=== PATIENT | male | born 1980 | race African-American/Black ===

== ENCOUNTER → 2018-11-09 14:44 | Emergency (ER) | payer MEDICAID ==
[~2018-11-09 14:44] MED LIST: Acetaminophen TAB* 325 MG PO ONE; Al Hydrox/Mg Hydrox/Simet LIQ* 30 ML UDC PO ONE; Hydrochlorothiazide TAB* 25 MG PO ONE; Iohexol 350* (CONTRAST) 500 ML MDV IV ONE; Labetalol IV* 5 MG/ML 20 ML VIAL IV PUSH ONE; Lidocaine 2% VISCOUS* 15 ML UDC PO ONE; Lisinopril TAB* 10 MG PO ONE; Pantoprazole TAB * 40 MG TAB PO ONE; hydrALAZINE IV* 20 MG/ML VIAL IV SLOW PU ONE
--- NOTE | 2018-11-09 15:28 | ED ---
Hypertension - HPI Summary HPI Summary: 38 year old M presenting to [facility] with a chief complaint of hypertension since today. The patient rates the pain 3/10 in severity. Symptoms aggravated by nothing. Symptoms alleviated by nothing. Patient reports headache. He additionally reports epigastric pain described as burning and stabbing that resolves with Tums but comes back after eating. Patient denies nausea and vomiting. Patient has history HTN but has not taken his medication for one month because he left it in his hotel room on vacation. - History of Current Complaint Chief Complaint: EDHypertension Stated Complaint: HIGH BP/ABNORMAL EKG PER PT Time Seen by Provider: 11/09/18 15:21 Hx Obtained From: Patient Onset/Duration: Started Days Ago - 1, Still Present Timing: Constant Aggravating Factor(s): Nothing Alleviating Factor(s): Nothing Associated Signs & Symptoms: Negative - nausea and vomiting, Other: - headache, epigastric pain described as burning and stabbing that resolves with Tums but comes back after eating - Allergies/Home Medications Allergies/Adverse Reactions: Allergies Allergy/AdvReac Type Severity Reaction Status Date / Time No Known Allergies Allergy Verified 11/09/18 14:50 Home Medications: Home Medications NK [No Home Medications Reported] 11/09/18 [History Confirmed 11/09/18] PMH/Surg Hx/FS Hx/Imm Hx Previously Healthy: No Cardiovascular History: Reports: Hx Hypertension Denies: Hx Hypercholesterolemia GI History: Reports: Hx Gastroesophageal Reflux Disease - Surgical History Surgery Procedure, Year, and Place: None Infectious Disease History: No Infectious Disease History: Denies: Traveled Outside the [place] in Last 30 Days - Family History Known Family History: Negative: Cardiac Disease - Social History Alcohol Use: Occasionally Hx Substance Use: Yes Substance Use Type: Reports: Cocaine Hx Tobacco Use: Yes Smoking Status (MU): Smoker, Current Status Unknown Review of Systems Positive: Other - hypertension Positive: Other - epigastric pain. Negative: Vomiting, Nausea Positive: Headache All Other Systems Reviewed And Are Negative: Yes Physical Exam - Summary Physical Exam Summary: VITAL SIGNS: Reviewed. GENERAL: Patient is an obese MALE who is lying comfortable in the stretcher. Patient is not in any acute respiratory distress. HEAD AND FACE: No signs of trauma. No ecchymosis, hematomas or skull depressions. No sinus tenderness. EYES: PERRLA, EOMI x 2, No injected conjunctiva, no nystagmus. EARS: Hearing grossly intact. Ear canals and tympanic membranes are within normal limits. MOUTH: Oropharynx within normal limits. NECK: Supple, trachea is midline, no adenopathy, no JVD, no carotid bruit, no c- spine tenderness, neck with full ROM. CHEST: Symmetric, no tenderness at palpation LUNGS: Clear to auscultation bilaterally. No wheezing or crackles. CVS: Regular rate and rhythm, S1 and S2 present, no murmurs or gallops appreciated. ABDOMEN: Soft, non-tender. No signs of distention. No rebound no guarding, and no masses palpated. Bowel sounds are normal. EXTREMITIES: FROM in all major joints, no edema, no cyanosis or clubbing. NEURO: Alert and oriented x 3. No acute neurological deficits. Speech is normal and follows commands. SKIN: Dry and warm. Triage Information Reviewed: Yes Vital Signs On Initial Exam: Initial Vitals Temp Pulse Resp BP Pulse Ox 98.3 F 87 20 173/115 100 11/09/18 14:47 11/09/18 14:47 11/09/18 14:47 11/09/18 14:47 11/09/18 14:47 Vital Signs Reviewed: Yes Diagnostics - Vital Signs Vital Signs Temp Pulse Resp BP Pulse Ox 11/09/18 14:47 98.3 F 87 20 173/115 100 - Laboratory Result Diagrams: 11/09/18 15:32 11/09/18 15:32 Lab Statement: Any lab studies that have been ordered have been reviewed, and results considered in the medical decision making process. - Radiology CXR Radiology Interpretation Completed By: Radiologist Summary of Radiographic Findings: NO ACTIVE CARDIOPULMONARY DISEASE. ED physician has reviewed this report. - EKG 1500 Cardiac Rate: NL - 81 BPM EKG Rhythm: Sinus Rhythm Summary of EKG Findings: NSR at 81 BPM, No ST elevations, Q waves in III 1800 Cardiac Rate: NL - 92 BPM EKG Rhythm: Sinus Rhythm Summary of EKG Findings: Early repolarization Hypertension Course/Dx - Course Assessment/Plan: 38 year old M presenting to [facility] from [facility] with a chief complaint of hypertension since today. The patient rates the pain 3/10 in severity. Symptoms aggravated by nothing. Symptoms alleviated by nothing. Patient reports headache. He additionally reports epigastric pain described as burning and stabbing that resolves with Tums but comes back after eating. Patient denies nausea and vomiting. Patient has history HTN but has not taken his medication for one month because he left it in his hotel room on vacation. EKG shows a normal sinus rhythm without any ST elevations. Blood work without any significant abnormality, troponin 0.01. Urinalysis is negative for UTI. Chest x-ray impression: No active cardiopulmonary disease. In the ED course, the patient was given 1 dose of labetalol for the blood pressure which significantly improved to 147/89. Patient had episodes of tachycardia and he occasionally reports shortness of breath. Therefore I ordered a chest CTA. The patient was given an additional dose of labetalol since the blood pressure increased to 187/113. At this time, the patient will be signed out to Dr. Andrew at shift change to follow-up the CTA and If the hypertension is not controlled, the patient should be admitted to hospitalist for further workup and management. - Diagnoses Provider Diagnoses: Chest pain, Hypertension Discharge - Sign-Out/Discharge Documenting (check all that apply): Sign-Out Patient Signing out patient TO: Chris Andrew - Awaiting CTA Chest, pending disposition Patient Received Moderate/Deep Sedation with Procedure: No - Discharge Plan Condition: Stable Referrals: No Primary Care Phys,NOPCP [Primary Care Provider] - - Billing Disposition and Condition Condition: STABLE - Attestation Statements Document Initiated by Tu: Yes Documenting Scribe: Mindi Hughes Provider For Whom Tu is Documenting (Include Credential): Jaron Araujo MD Scribe Attestation: I, Mindi Hughes, scribed for Jaron Araujo MD on 11/09/18 at 1855. Scribe Documentation Reviewed: Yes Provider Attestation: The documentation as recorded by the Mindi oliver accurately reflects the service I personally performed and the decisions made by me, Jaron Araujo MD Status of Scribe Document: Viewed
[2018-11-09 15:39] LABS: ABS Basophils 0.1 10^3/ul (0-0.2); ABS Eosinophils 0.2 10^3/ul (0-0.6); ABS Monocytes 0.8 10^3/ul (0-0.8); ABS Neutrophils 6.8 10^3/ul (1.5-7.7); Eosinophil % 2.2 %; Hematocrit 42 % (42-52); Hemoglobin 13.8 g/dL (14.0-18.0); Lymphocyte % 20.6 %; Mean Corpuscular HGB Conc 33 g/dL (31-36); Mean Corpuscular Hemoglobin 27 pg (27-31); Mean Corpuscular Volume 83 fL (80-94); Mean Platelet Volume 7.7 fL (7.4-10.4); Nucleated Red Blood Cells % 0.1; Platelet Count 350 10^3/uL (150-450); Red Blood Count 5.11 10^6 /uL (4.18-5.48); Red Cell Distribution Width 15 % (10.5-15); White Blood Count 9.9 10^3/uL (3.5-10.8)
[2018-11-09 16:00] LABS: Albumin 3.9 g/dL (3.2-5.2); Albumin/Globulin Ratio 1.3 (1-3); BUN/Creatinine Ratio 11.3 (8-20); Calcium 9.2 mg/dL (8.6-10.3); EGFR African American 93.6 (>60); EGFR Non-African American 77.4 (>60); Globulin 2.9 g/dL (2-4); Potassium 4.1 mmol/L (3.5-5.0); Total Bilirubin 0.3 mg/dL (0.2-1.0); Total Protein 6.8 g/dL (6.4-8.9); Troponin I 0.01 ng/mL (<0.04)
[2018-11-09 16:02] LABS: Magnesium 2.1 mg/dL (1.9-2.7)
[2018-11-09 16:04] LABS: CKMB ng/mL 2.5 ng/mL (0.6-6.3)
[2018-11-09 16:33] LABS: TSH (Thyroid Stimulating Horm) 1.96 mcIU/mL (0.34-5.60)
[2018-11-09 17:21] LABS: Urine Appearance Clear; Urine Bilirubin Negative (Negative); Urine Blood Negative (Negative); Urine Color Yellow; Urine Glucose Negative (Negative); Urine Ketones Negative (Negative); Urine Nitrite Negative (Negative); Urine Protein Negative (Negative); Urine Specific Gravity 1.014 (1.010-1.030); Urine Urobilinogen Negative (Negative)
--- NOTE | 2018-11-09 19:11 | ED ---
Progress - Progress Note Progress Note: The patient is a sign-out from Dr. Jaron Araujo MD, to Dr. Chris Andrew MD , at change of shift at 1900 pending Chest CTA results and disposition. Chest/ Thorax CTA impression reveals no pulmonary emboli or additional significant findings. The patient is diagnosed with hypertension. He does not want to stay in the hospital for his symptoms, so he will be discharged home with prescription for Lisinopril and Pantoprazole. He will follow up with a PCP in 3 days. He agrees with this plan and understands the need for return to the ED for any new or worsening symptoms. - Results/Orders Results/Orders: Chest/Thorax CTA: No pulmonary emboli. No additional findings to correlate with patient's symptomatology. ED physician has reviewed this radiology report. Re-Evaluation - Re-Evaluation First Eval Re-Evaluation Time: 20:10 Comment: I spoke with the patient concerning the results of the Chest/Thorax CTA and plan for disposition. Second Eval Re-Evaluation Time: 21:00 Change: Unchanged Comment: The patient does not want to stay in the hospital, so he will be discharged home. Course/Dx - Diagnoses Provider Diagnoses: Chest pain, Hypertension Discharge - Sign-Out/Discharge Documenting (check all that apply): Patient Departure - Patient will be discharged home., Receiving Sign-Out Receiving patient FROM: Jaron Araujo - Patient was a sign-out from Dr. Araujo at shift change pending Chest CTA and disposition. Patient Received Moderate/Deep Sedation with Procedure: No - Discharge Plan Condition: Stable Disposition: HOME Prescriptions: Lisinopril/HCTZ 20/12.5(NF) [Zestoretic 20/12.5(NF)] 1 tab PO DAILY #30 tab Pantoprazole TAB * [Protonix TAB*] 40 mg PO DAILY #30 tab Patient Education Materials: Hypertension (ED) Referrals: [facility]FERRAL [Outside] - 3 Days Additional Instructions: Please take medications as prescribed. Follow up with a primary care physician in 2-3 days. RETURN TO THE EMERGENCY DEPARTMENT FOR ANY NEW OR WORSENING SYMPTOMS. - Billing Disposition and Condition Condition: STABLE Disposition: Home - Attestation Statements Document Initiated by Scribe: Yes Documenting Scribe: Clarisa Love Provider For Whom Scribe is Documenting (Include Credential): Dr. Chris Andrew MD Scribe Attestation: I, Clarisa Love, scribed for Dr. Chris Andrew MD on 11/09/18 at 2119. Scribe Documentation Reviewed: Yes Provider Attestation: The documentation as recorded by the scribe, Clarisa Love accurately reflects the service I personally performed and the decisions made by me, Dr. Chris Andrew MD Status of Scribe Document: Viewed
[2018-11-09 21:37] VITALS: BP 160/101
== END | disposition home or self-care (01) ==
LOC: ED 14:44
DX: R07.9 Chest pain, unspecified (principal); I10 Essential (primary) hypertension; R10.13 Epigastric pain; Z72.0 Tobacco use; R51 Headache
CPT/HCPCS: 36415; 71045; 71275; 80053; 81003; 82550; 82553; 83735; 83880; 84443; 84484; 85025; 93005; 96365; 96366; 99285; A9270-GY; J0360; Q9967